=== PATIENT | male | born 1970 | race Caucasian/White ===

== ENCOUNTER 2024-11-03 15:18 | Inpatient (IN) | payer OTHER ==
[2024-11-03 15:47] VITALS: BMI 29.5
[2024-11-03] MEDS ORDERED: cloNIDine HCL 0.1 MG TABLET ONE (15:49)
[2024-11-03] MEDS: cloNIDine HCL 0.1 MG TABLET PO ONE (15:51)
[2024-11-03] MEDS ORDERED: NALOXONE (NARCAN) HCL 4 MG/0.1 ML SPRAY NS PRN (18:08)
[2024-11-03] MEDS ORDERED: guaiFENesin 600 MG TABLET.ER (FP) PO PRN (18:08)
[2024-11-03] MEDS ORDERED: POLYETHYLENE GLYCOL (HEALTHYLAX) 3350 17 GM PACKET PO PRN (18:08)
[2024-11-03] MEDS ORDERED: BENZONATATE 200 MG CAPSULE PO PRN (18:08)
[2024-11-03] MEDS ORDERED: P-EPHED 60MG/TRIPROLIDI 2.5MG TABLET PO PRN (18:08)
[2024-11-03] MEDS ORDERED: MAG HYDROX/AL HYDROX/SIMETH 30 ML UNIT-DOSE CUP PO PRN (18:08)
[2024-11-03] MEDS ORDERED: ACETAMINOPHEN 325 MG TABLET (FP) PO PRN (18:08)
[2024-11-03] MEDS ORDERED: BENZOCAINE/MENTHOL (CHLORASEPTIC ) LOZENGE MM PRN (18:08)
[2024-11-03] MEDS ORDERED: NICOTINE POLACRILEX 2 MG LOZENGE BC PRN (18:08)
[2024-11-03] MEDS ORDERED: DOCUSATE SODIUM 100 MG CAPSULE (FP) PO PRN (18:08)
[2024-11-03] MEDS ORDERED: LOPERAMIDE HCL 2 MG CAPSULE PO PRN (18:08)
[2024-11-03] MEDS ORDERED: IBUPROFEN 400 MG TABLET (FP) PO PRN (18:08)
[2024-11-03] MEDS: THIAMINE 100 MG TABLET PO SCH (21:07)
[2024-11-03] MEDS: MELATONIN 5 MG TABLETS PO SCH (21:07)
[2024-11-03] MEDS: TUBERCULIN PPD 5 TU/0.1ML SYRINGE (IN PATIENT USE ONLY) ID ONE (21:52)
[2024-11-04] MEDS: methaDONE HCL 40 MG DISPERSABLE TABLET PO SCH (10:34)
[2024-11-04] MEDS: PRENATAL VITAMINS W/ FOLIC ACID TABLET (FP) PO SCH (10:34)
[2024-11-04 11:24] LABS: URINE APPEARANCE CLEAR; URINE BILIRUBIN NEGATIVE (NEGATIVE); URINE COLOR YELLOW; URINE GLUCOSE (UA) NEGATIVE (NEGATIVE); URINE KETONE TRACE (NEGATIVE); URINE LEUK ESTERASE NEGATIVE (NEGATIVE); URINE NITRITE NEGATIVE (NEGATIVE); URINE PROTEIN NEGATIVE (NEGATIVE)
[2024-11-04 11:26] LABS: HEMATOCRIT 38.2 % (35.4-49); HEMOGLOBIN 12.9 GM/dL (11.7-16.9); MCH 29.6 pg (25.7-33.7); MCHC 33.9 g/dl (32.0-35.9); MEAN CELL VOLUME 87.3 fl (80-96); MEAN PLT VOLUME 7.7 fl (7.5-11.1); PLATELET COUNT 206 10^3/uL (134-434); RBC 4.37 M/mm3 (4.00-5.60); RDW 15.4 % (11.9-15.9); WHITE BLOOD COUNT 7.9 K/mm3 (4.0-10.0)
[2024-11-04 11:47] LABS: CHLORIDE 103 mmol/L (98-107); POTASSIUM 4.1 mmol/L (3.5-5.1); SODIUM 138 mmol/L (136-145)
[2024-11-04 11:55] LABS: CALCIUM 9.2 mg/dL (8.5-10.1)
[2024-11-04 11:57] LABS: ALBUMIN 3.9 g/dl (3.4-5.0); ANION GAP 1 mmol/L (4-13); BLOOD UREA NITROGEN 15.5 mg/dL (7-18); CO2 33 mmol/L (21-32); GLUCOSE,RANDOM 105 mg/dL (74-106)
[2024-11-04 12:00] LABS: BILIRUBIN,TOTAL 0.4 mg/dL (0.2-1); CREATININE 0.9 mg/dL (0.55-1.3); SGOT/AST 60 U/L (15-37); SGPT/ALT 63 U/L (13-61); TOT PROT 7.7 g/dl (6.4-8.2)
[2024-11-04 12:02] LABS: ALK PHOS 51 U/L (45-117)
[2024-11-04] MEDS: QUEtiapine FUMARATE 50 MG TABLET PO SCH (21:26)
[2024-11-06] MEDS: IBUPROFEN 600 MG TABLET (FP) PO PRN (10:12)
[2024-11-07] MEDS: hydrOXYzine PAMOATE 25 MG CAPSULE (FP) PO PRN (05:36)
[2024-11-11] MEDS ORDERED: NICOTINE POLACRILEX 4 MG LOZENGE BC PRN (14:18)
[2024-11-11] MEDS: GABAPENTIN 300 MG CAPSULE PO SCH (14:55)
[2024-11-11] MEDS: NICOTINE 14 MG/24 HOURS TOPICAL PATCH TD SCH (14:55)
[2024-11-11] MEDS: NICOTINE POLACRILEX 2 MG GUM BUC PRN (14:56)
[2024-11-11] MEDS: ACAMPROSATE CALCIUM 333 MG TABLET.DR PO SCH (21:15)
[2024-11-12] MEDS: ALBUTEROL SO4 HFA INHALER IH PRN (13:17)
[2024-11-19] MEDS: SUVOREXANT 10 MG TABLET PO PRN (21:15)
[2024-11-21] MEDS: MAGNESIUM HYDROX 2400MG/30ML ORAL SUSPENSION 30 ML CUP PO PRN (15:15)
[2024-11-21] MEDS: SUVOREXANT 10 MG TABLET PO PRN (21:06)
[2024-11-24] MEDS ORDERED: SUVOREXANT 10 MG TABLET PO PRN (22:00)
[2024-11-25] MEDS: SUVOREXANT 10 MG TABLET PO PRN (21:13)
[2024-11-26] MEDS ORDERED: SUVOREXANT 10 MG TABLET PO PRN (22:00)
[2024-11-27 21:49] VITALS: RESP 16
[2024-11-27] MEDS ORDERED: SUVOREXANT 10 MG TABLET PO PRN (22:00)
[2024-11-28 07:02] VITALS: BP 124/77; PULSE 70; TEMP 97.6
[2024-11-28] MEDS ORDERED: SUVOREXANT 10 MG TABLET PO PRN (22:00)
== END 2024-11-28 09:36 | disposition home or self-care (01) | DRG 772 ==
LOC: YASAS 15:18 → Y3W 18:29 → Y5N 11-06 22:14 → Y3W 11-06 22:15
PROVIDERS: ADMIT Psychiatry & Neurology Pain Medicine; ATTEND Psychiatry & Neurology Pain Medicine
PROC: HZ42ZZZ Group Counseling for Substance Abuse Treatment, Cognitive-Behavioral (ICD-10-PCS; principal; 2024-11-03)
DX: F10.20 Alcohol dependence, uncomplicated (principal); F11.20 Opioid dependence, uncomplicated; F14.20 Cocaine dependence, uncomplicated; F17.210 Nicotine dependence, cigarettes, uncomplicated; F32.A Depression, unspecified; G47.00 Insomnia, unspecified; M25.551 Pain in right hip; R03.0 Elevated blood-pressure reading, without diagnosis of hypertension; Z56.0 Unemployment, unspecified; Z59.00 Homelessness unspecified
CPT/HCPCS: 36415; 80053; 80305; 80307; 81003; 85027; 86780; 87811; 93005; 93010